=== PATIENT | female | born 1975 | race Caucasian/White ===

== ENCOUNTER → 2024-05-04 | Outpatient (CLI) | payer OTHER ==
[~2024-05-04] MED LIST: BUPR150T2; BUPR75 PO; CLIN300 PO; CYCL10 PO; DIPATR PO; Flomax0.4 MG PO; HYDACE5 PO; MULVITMINE; ONDA4 PO; ONDA8ODT MM; Percocet 5-3251 EACH PO; SERT25 PO; TOLT4 PO; WARF6 PO; WARF7.5 PO
== END | disposition home or self-care (01) ==
LOC: LAB 10:13 → LAB SHORT 10:13
DX: R30.0 Dysuria (principal)
CPT/HCPCS: 87077; 87086; 87186